=== PATIENT | male | born 1970 | race African-American/Black ===

== ENCOUNTER 2018-10-19 01:30 | Emergency (ER) | payer OTHER, MEDICAID ==
[2018-10-19] MEDS: IPRATROPIUM (NEB) 0.5 MG/2.5 ML AMP INH (01:53)
[2018-10-19] MEDS: METHYLPREDNISOLONE 125 MG INJ IV (01:54)
[2018-10-19] MEDS: ALBUTEROL 0.5% (NEB) 2.5 MG/0.5 ML AMP INH (01:54)
[2018-10-19] MEDS: SOD CHLORIDE 0.9% 500 ML IV (01:57)
[2018-10-19] MEDS: predniSONE 20 MG TAB PO (02:53)
== END 2018-10-19 03:07 | disposition home or self-care (01) ==
LOC: FTE 01:30
DX: J45.901 Unspecified asthma with (acute) exacerbation (principal)
CPT/HCPCS: 94644; 96374; 99284-25

== ENCOUNTER 2018-12-01 13:01 | Emergency (ER) | payer OTHER ==
[2018-12-01] MEDS: DEXAMETHASONE 10 MG/ML 1 ML INJ IM (13:48)
[2018-12-01] MEDS: ALBUTEROL 0.083% (NEB) 2.5 MG/3 ML AMP HHN (13:59)
[2018-12-01] MEDS: IPRATROPIUM (NEB) 0.5 MG/2.5 ML AMP HHN (13:59)
== END 2018-12-01 14:50 | disposition home or self-care (01) ==
LOC: FTE 13:01
DX: J45.901 Unspecified asthma with (acute) exacerbation (principal)
CPT/HCPCS: 94664; 96372; 99284-25